=== PATIENT | female | born 1950 | race Caucasian/White ===

== ENCOUNTER → 2017-10-02 | Outpatient (CLI) | payer MEDICARE, BC ==
[~2017-10-02] MED LIST: ALEVE PO; ATORVASTATIN CA10 MG PO; BYSTOLIC5 MG PO; DEXILANT60 MG PO; DICYCLOMINE HCL10 MG PO; DIOVAN HCT 80-1 EACH PO; FISH OIL 1,0001 EAC1 PO; HUMIRA40 MG/0.8; MULTI-VITAMIN1 EACH PO; NAPROXEN500 MG PO; OSTEO BI-FLEX1 EAC2 PO; PROBIOTIC PO; SULFASALAZINE500 MG PO; UCERIS PO; VITAMIN B-121000 MCG PO; VITAMIN D2400 UNIT
--- NOTE | 2017-10-13 10:25 | Diagnostic Imaging Report ---
#[id number] - MGSCR[facility] #BILATERAL DIGITAL SCREENING MAMMOGRAM WITH CAD: 10/02/2017 CLINICAL: Routine screening. Comparison is made to exams dated: 09/27/2016 mammogram, 08/23/2015 mammogram and 06/30/2014 mammogram - [facility]. Current study contains 4 films. The tissue of both breasts is heterogeneously dense. This may lower the sensitivity of mammography. Current study was also evaluated with a Computer Aided Detection (CAD) system. There are benign nodules in both breasts; some of which are smaller and some of which are larger. There also are benign diffuse scattered calcifications in both breasts. No significant masses, calcifications, or other findings are seen in either breast. There has been no significant interval change. IMPRESSION: BENIGN There is no mammographic evidence of malignancy. A 1 year screening mammogram is recommended. The patient will be notified by letter of the results. Kemar Loaiza Jr., D.O. cw/:10/10/2017 09:14:28 Associate Director Of Nursing: Erika POTTER(Ellie)(M), [facility] letter sent: Compared to Prior B9 Mammogram BI-RADS: 2 Benign
== END ==
LOC: MAMMO 12:35
PROVIDERS: ATTEND Family Medicine
DX: Z12.31 Encounter for screening mammogram for malignant neoplasm of breast (principal)

== ENCOUNTER → 2017-12-03 | Day surgery (SDC) | payer MEDICARE, BC ==
[~2017-12-03] MED LIST changes: +FENTANYL CITRATE/PF 100MCG/2 ML INJ ONE; +HYOSCYAMINE SULFATE 0.5 MG/ML AMP ONE; +LIDOCAINE HCL 2% LOCAL INJ 5 ML SDV VIAL INJ ONE; +MIDAZOLAM HCL 2 MG/2 ML VIAL ONE; +PROPOFOL IV EMULSION 10 MG/ML 50 ML VIAL ONE
--- OUTSIDE RECORDS SUMMARY | 2017-12-03 05:57 | XMS REPORT ---
Author Author [facility] Address Unknown Phone Unavailable Care Team Providers Care Internal Auditor Name Role Phone PASCALE DE GUZMAN Unavailable Unavailable Problems This patient has no known problems. Allergies, Adverse Reactions, Alerts This patient has no known allergies or adverse reactions. Medications This patient has no known medications. Results Test Description Test Time Test Comments Text Results Atomic Results Result Comments MAMMOGRAM DIGITAL SCR BI [place] [address] Patient Name: SUMAYA HENAO MR #: [id number] : 1950 Age/Sex: 67/F Req #: [id number] Adm Physician: Ordered by: PASCALE DE GUZMAN DO Report #: [id number] Location: MAMMO Room/Bed: Procedure: [id number] MG/MAMMOGRAM DIGITAL SCR BI Exam Date: 10/02/17 Exam Time: 1250 REPORT STATUS: Signed #[id number] - MGSCRNBI #BILATERAL DIGITAL SCREENING MAMMOGRAM WITH CAD: 10/02/2017 CLINICAL: Routine screening. Comparison is made to exams dated: 2016 mammogram, 08/23/2015 mammogram and 06/30/2014 mammogram - [facility]. Current study contains 4 films. The tissue of both breasts is heterogeneously dense. This may lower the sensitivity of mammography. Current study was also evaluated with a Computer Aided Detection (CAD) system. There are benign nodules in both breasts; some of which are smaller and some of which are larger. There also are benign diffuse scattered calcifications in both breasts. No significant masses, calcifications, or other findings are seen in either breast. There has been no significant interval change. IMPRESSION: BENIGN There is no mammographic evidence of malignancy. A 1 year screening mammogram is recommended. The patient will be notified by letter of the results. Regan Loaiza Jr., D.O. cw/:10/10/2017 09:14:28 Test Preparation Tutor: Erika MARES)(Maria Luisa), [facility] letter sent: Compared to Prior B9 Mammogram BI-RADS: 2 Benign Dictated By: REGAN LOAIZA DO 3 Transcribed By: RADHA on 10/10/17913 COPY TO: PASCALE DE GUZMAN DO
--- NOTE | 2017-12-03 09:23 | Operative Report ---
DATE OF PROCEDURE: December 03, 2017 REFERRING PHYSICIAN: Dr. Ar De Guzman PROCEDURE PERFORMED: Colonoscopy and polypectomy with biopsies. INDICATIONS FOR COLONOSCOPY: History of Crohn disease, personal history of colon polyps. MEDICATION: Patient was done under MAC. Please see anesthesiologist's note. PROCEDURE: With the patient in the left lateral decubitus position, the flexible fiberoptic Olympus colonoscope was inserted into the rectum with ease and advanced all the way to the cecum. The ileocecal valve was intubated and the scope was advanced into the terminal ileum. The terminal ileum appeared ulcerated and biopsies were obtained. The scope was then withdrawn back into the colon. It was then withdrawn slowly. Mucosa overlying the ascending, transverse and descending grossly appeared to be within normal limits. One polyp was hot biopsied from the sigmoid colon. Five polyps were hot biopsied from the rectum. The scope was then retroflexed into the distal rectum and small internal hemorrhoids were noted, none of which was actively bleeding. The scope was then straightened out. It was subsequently withdrawn. Patient tolerated the procedure well. IMPRESSION 1. Ulcerated terminal ileum, biopsied. 2. Sigmoid colon polyp, hot biopsied. 3. Rectal polyps times 5, hot biopsied. 4. Internal hemorrhoids, none actively bleeding. PLAN: Follow up histology. Check Humira antibodies. Check Humira level. Timing of followup colonoscopy pending pathology report. Job#: [id number] RI cc:PASCALE DE GUZMAN DO
== END | disposition home or self-care (01) ==
LOC: OR 05:55
PROVIDERS: ATTEND Internal Medicine Gastroenterology
DX: K50.90 Crohn's disease, unspecified, without complications (principal); K63.5 Polyp of colon; K62.1 Rectal polyp; K63.3 Ulcer of intestine; K64.8 Other hemorrhoids; I10 Essential (primary) hypertension; E78.5 Hyperlipidemia, unspecified; R00.1 Bradycardia, unspecified; K21.9 Gastro-esophageal reflux disease without esophagitis; L98.9 Disorder of the skin and subcutaneous tissue, unspecified; I83.90 Asymptomatic varicose veins of unspecified lower extremity; Z01.810 Encounter for preprocedural cardiovascular examination; Z91.041 Radiographic dye allergy status; Z68.35 Body mass index [BMI] 35.0-35.9, adult
CPT/HCPCS: 45380; 88305; 93005; J1980; J2001; J2250; 45384

== ENCOUNTER → 2018-10-03 | Day surgery (SDC) | payer MEDICARE, BC ==
[2018-09-30 16:57] LABS: BASOPHILS % 0.3 % (0.0-1.0); EOSINOPHILS # (AUTO) 0.1 (0.0-0.4); HEMATOCRIT 36.9 % (34.2-44.1); HEMOGLOBIN 11.7 g/dL (12.0-16.0); LYMPHOCYTES # (AUTO) 2.5 (1.0-3.2); MEAN CORPUSCULAR HEMOGLOBIN 29.7 pg (28-32); MEAN CORPUSCULAR HGB CONC 31.7 g/dL (31-35); MEAN CORPUSCULAR VOLUME 93.7 fL (81-99); MONOCYTES # (AUTO) 0.7 (0.2-0.8); MONOCYTES % 9.8 % (4.4-11.3); NEUTROPHILS # (AUTO) 3.8 (2.1-6.9); NEUTROPHILS % 53.6 % (38.7-80.0); PLATELET COUNT 237 x10e3/uL (140-360); RED BLOOD COUNT 3.94 x10e6/uL (3.6-5.1); RED CELL DISTRIBUTION WIDTH 14.6 % (11.7-14.4)
[~2018-10-03] MED LIST changes: +GLUCAGON FOR INJ 1 MG VIAL ONE; -HYOSCYAMINE SULFATE 0.5 MG/ML AMP ONE; +HYOSCYAMINE SULFATE 0.5 MG/ML INJ ONE; -LIDOCAINE HCL 2% LOCAL INJ 5 ML SDV VIAL INJ ONE; +TURMERIC1 GM; +VSL#3 CAPSULE1 EACH
--- NOTE | 2018-10-03 15:39 | Operative Report ---
DATE OF PROCEDURE: 10/03/2018 SURGEON: Richard Mccain MD PROCEDURE: Colonoscopy with biopsies and polypectomy. INDICATIONS FOR COLONOSCOPY: History of Crohn disease. 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 The patient is on Humira. Colonoscopy is being carried out to evaluate response to therapy. MEDICATIONS: The patient was done under MAC. Please see anesthesiologist's note. PROCEDURE IN DETAIL: With the patient in the left lateral decubitus position, a flexible fiberoptic Olympus colonoscope was inserted into the rectum with ease and advanced all the way to the cecum. Mucosa overlying the cecum appeared to be within normal limits. The ileocecal valve was intubated and the terminal ileum was diffusely ulcerated. Biopsies were obtained. I repeat and the terminal ileum was ulcerated. Biopsies were obtained. The scope was then withdrawn back into the colon. The mucosa overlying the ascending, transverse, descending and sigmoid appeared to be within normal limits. Several minute hyperplastic-appearing polyps were noted in the rectum and approximately 6 were hot biopsied. The scope was then retroflexed into the distal rectum and small internal hemorrhoids were noted, none of which was actively bleeding. The scope was then straightened out and was subsequently withdrawn. The patient tolerated the procedure well. IMPRESSION: 1. Ulcerated terminal ileum. Biopsies obtained. 2. Rectal polyps, minute, hyperplastic-appearing, approximately 6 removed per hot biopsy forceps. 3. Internal hemorrhoids, none actively bleeding. PLAN: Followup histology. We will check Humira blood level. We will check serum antibodies against Humira. Pending lab results, either we will increase dose of Humira or switch to another biologic versus swapping to another class of therapy. MD CT Michel/HARLEY /[id number] cc: Fred El DO
== END | disposition home or self-care (01) ==
LOC: OR 06:00
PROVIDERS: ATTEND Internal Medicine Gastroenterology
DX: K50.90 Crohn's disease, unspecified, without complications (principal); E66.01 Morbid (severe) obesity due to excess calories; I10 Essential (primary) hypertension; E78.5 Hyperlipidemia, unspecified; K62.1 Rectal polyp; Z91.048 Other nonmedicinal substance allergy status
CPT/HCPCS: 36415 ×2; 45384; 85025; 88305; 93005; J1610; J1980; J2250; J2704

== ENCOUNTER → 2018-11-05 | Outpatient (CLI) | payer MEDICARE, BC ==
[~2018-11-05] MED LIST changes: -FENTANYL CITRATE/PF 100MCG/2 ML INJ ONE; -GLUCAGON FOR INJ 1 MG VIAL ONE; -HYOSCYAMINE SULFATE 0.5 MG/ML INJ ONE; -MIDAZOLAM HCL 2 MG/2 ML VIAL ONE; -PROPOFOL IV EMULSION 10 MG/ML 50 ML VIAL ONE
== END ==
LOC: MAMMO 09:04
PROVIDERS: ATTEND Family Medicine
DX: Z12.31 Encounter for screening mammogram for malignant neoplasm of breast (principal)
CPT/HCPCS: 77067

== ENCOUNTER → 2020-09-08 | Day surgery (SDC) | payer MEDICARE, BC ==
[2020-09-05 08:20] LABS: BASOPHILS % 0.5 % (0.0-1.0); EOSINOPHILS # (AUTO) 0.1 (0.0-0.4); HEMATOCRIT 38.7 % (34.2-44.1); HEMOGLOBIN 12.4 g/dL (12.0-16.0); LYMPHOCYTES # (AUTO) 2.7 (1.0-3.2); LYMPHOCYTES % 34.5 % (18.0-39.1); MEAN CORPUSCULAR HEMOGLOBIN 28.9 pg (28-32); MEAN CORPUSCULAR VOLUME 90.2 fL (81-99); MONOCYTES # (AUTO) 0.6 (0.2-0.8); MONOCYTES % 7.5 % (4.4-11.3); NEUTROPHILS # (AUTO) 4.4 (2.1-6.9); NEUTROPHILS % 56.1 % (38.7-80.0); PLATELET COUNT 244 x10e3/uL (140-360); RED BLOOD COUNT 4.29 x10e6/uL (3.6-5.1); RED CELL DISTRIBUTION WIDTH 13.8 % (11.7-14.4)
[~2020-09-08] MED LIST changes: +HYOSCYAMINE 0.125 MG TAB ONE; +HYOSCYAMINE SULFATE 0.5 MG/ML INJ ONE; +LIDOCAINE HCL 2% LOCAL INJ 5 ML SDV VIAL INJ ONE; +PROPOFOL IV EMULSION 10 MG/ML 20 ML VIAL ONE; -TURMERIC1 GM; +TURMERIC1 GM PO
[2020-09-08 10:35] VITALS: BP 120/76
== END | disposition home or self-care (01) ==
LOC: OR 05:58
PROVIDERS: ATTEND Internal Medicine Gastroenterology
DX: Z09 Encounter for follow-up examination after completed treatment for conditions other than malignant neoplasm (principal); Z86.010 Personal history of colon polyps; K50.90 Crohn's disease, unspecified, without complications; K63.3 Ulcer of intestine; K63.89 Other specified diseases of intestine; K64.8 Other hemorrhoids; I10 Essential (primary) hypertension; E78.00 Pure hypercholesterolemia, unspecified; K21.9 Gastro-esophageal reflux disease without esophagitis; I44.0 Atrioventricular block, first degree; I49.3 Ventricular premature depolarization; Z91.041 Radiographic dye allergy status; Z91.013 Allergy to seafood; Z01.810 Encounter for preprocedural cardiovascular examination; Z01.812 Encounter for preprocedural laboratory examination; Z20.822 Contact with and (suspected) exposure to COVID-19
CPT/HCPCS: 36415 ×2; 45380; 85025; 86140; 88305; 88342; 93005; J1980; J2001; J2704; U0002; 45378

== ENCOUNTER → 2021-02-01 | Outpatient (CLI) | payer MEDICARE, BC ==
[~2021-02-01] MED LIST changes: -HYOSCYAMINE 0.125 MG TAB ONE; -HYOSCYAMINE SULFATE 0.5 MG/ML INJ ONE; -LIDOCAINE HCL 2% LOCAL INJ 5 ML SDV VIAL INJ ONE; -PROPOFOL IV EMULSION 10 MG/ML 20 ML VIAL ONE
== END ==
LOC: MAMMO 08:04
PROVIDERS: ATTEND Family Medicine
DX: Z12.31 Encounter for screening mammogram for malignant neoplasm of breast (principal)
CPT/HCPCS: 77067

== ENCOUNTER → 2021-02-08 | Outpatient (CLI) | payer MEDICARE, BC | LOC: MAMMO 13:53 | PROVIDERS: ATTEND Family Medicine | DX: N63.20 Unspecified lump in the left breast, unspecified quadrant (principal); N63.10 Unspecified lump in the right breast, unspecified quadrant ==

== ENCOUNTER → 2021-02-22 | Outpatient (CLI) | payer MEDICARE, BC | LOC: US 07:36 | PROVIDERS: ATTEND Family Medicine | DX: N63.20 Unspecified lump in the left breast, unspecified quadrant (principal) | CPT/HCPCS: 19083; 77065; 88305; 88342; A4648 ==

== ENCOUNTER → 2022-09-19 | Outpatient (CLI) | payer MEDICARE, BC ==
[~2022-09-19] MED LIST changes: +ACIPHEX20 MG PO; +ARIMIDEX1 MG PO; +METOPROLOL SUCC50 MG PO; +NEURONTIN100 MG PO; +VITAMIN C 500500 MG PO; +ZINC50 M2
== END ==
LOC: RAD 12:58
PROVIDERS: ATTEND Internal Medicine Gastroenterology
DX: A15.9 Respiratory tuberculosis unspecified (principal)
CPT/HCPCS: 71046

== ENCOUNTER → 2025-05-10 | Outpatient (REF) | payer MEDICARE, BC ==
[~2025-05-10] MED LIST changes: +ENTYVIO300 MG
== END ==
LOC: DX 08:25
PROVIDERS: ATTEND Family Medicine
DX: Z13.820 Encounter for screening for osteoporosis (principal); Z78.0 Asymptomatic menopausal state; E55.9 Vitamin D deficiency, unspecified
CPT/HCPCS: 77080